=== PATIENT | male | born 1995 | race Caucasian/White ===

== ENCOUNTER 2016-11-11 11:13 | Emergency (ER) | payer BC, OTHER ==
--- NOTE | 2016-11-11 11:32 | ED ---
General Adult HPI - General Chief complaint: ENT Stated complaint: Throat Pain, Headache Time Seen by Provider: 11/11/16 11:17 Source: patient, RN notes reviewed Mode of arrival: ambulatory Limitations: no limitations - History of Present Illness Initial comments: Patient 21-year-old male who presents emergency room today with chief complaint of a sore throat over the last week. Patient does admit that he did have mono the past THAT this could be related. He denies any abdominal pain. Denies any nausea, vomiting, diarrhea. Patient denies any recorded temperatures. Denies any cough or congestion. Denies any ear pain. Doesn't to some sinus pressures have some headaches. Patient denies any other complaints. - Related Data Home Medications Medication Instructions Recorded Confirmed Aspirin 325 mg PO DAILY PRN 11/11/16 11/11/16 Previous Rx's Medication Instructions Recorded Fluticasone Propionate [Flonase 1 - 2 spray EA NOSTRIL DAILY 5 Days 11/11/16 Allergy Relief] Allergies Allergy/AdvReac Type Severity Reaction Status Date / Time No Known Allergies Allergy Verified 11/11/16 11:29 Review of Systems ROS Statement: Those systems with pertinent positive or pertinent negative responses have been documented in the HPI. ROS Other: All systems not noted in ROS Statement are negative. Past Medical History Past Medical History: No Reported History History of Any Multi-Drug Resistant Organisms: None Reported Past Surgical History: No Surgical Hx Reported Past Psychological History: No Psychological Hx Reported Smoking Status: Current every day smoker Past Alcohol Use History: None Reported Past Drug Use History: None Reported General Exam - General Exam Comments Initial Comments: General: The patient is awake and alert, in no distress, and does not appear acutely ill. Eye: Pupils are equal, round and reactive to light, extra-ocular movements are intact. No nystagmus. There is normal conjunctiva bilaterally. No signs of icterus. Ears, nose, mouth and throat: There are moist mucous membranes and no oral lesions. Tender to palpation over both frontal Sinuses. TMs clear bilaterally. Neck: The neck is supple, there is no tenderness or JVD. Cardiovascular: There is a regular rate and rhythm. No murmur, rub or gallop is appreciated. Respiratory: Lungs are clear to auscultation, respirations are non-labored, breath sounds are equal. No wheezes, stridor, rales, or rhonchi. Gastrointestinal: Soft, non-distended, non-tender abdomen without masses or organomegaly noted. There is no rebound or guarding present. No CVA tenderness. Bowel sounds are unremarkable. Musculoskeletal: Normal ROM, no tenderness. Strength 5/5. Sensation intact. Pulses equal bilaterally 2+. Neurological: A&O x 3. CN II-XII intact, There are no obvious motor or sensory deficits. Coordination appears grossly intact. Speech is normal. Skin: Skin is warm and dry and no rashes or lesions are noted. Psychiatric: Cooperative, appropriate mood & affect, normal judgment. Limitations: no limitations Course Vital Signs 11/11/16 11:15 Temperature 99.4 F Pulse Rate 91 Respiratory 18 Rate Blood Pressure 124/68 O2 Sat by Pulse 100 Oximetry Medical Decision Making - Medical Decision Making Patient reexamined at this time shows no signs of distress. Patient will be discharged home. Pulses equal bilateral. Will be treated for sinus infection with Flonase. Advised return for any other concerns. The family doctor. - Lab Data Lab Results 11/11/16 Range/Units 11:32 Group A Strep Rapid Negative (Negative) Disposition Clinical Impression: Acute sinusitis Disposition: HOME SELF-CARE Condition: Good Instructions: Sinusitis (ED) Additional Instructions: Please use medication as discussed. Please follow-up with family doctor in the next 2 days of symptoms have not improved. Please return to emergency room if the symptoms increase or worsen or for any other concerns. Prescriptions: Fluticasone Propionate [Flonase Allergy Relief] 1 - 2 spray EA NOSTRIL DAILY 5 Days Referrals: None,Stated [Primary Care Provider] - 1-2 days Time of Disposition: 12:31
[2016-11-11 12:45] VITALS: BP 114/60; PULSE 82; RESP 16; TEMP 98.9
== END 2016-11-11 12:35 | disposition home or self-care (01) ==
LOC: EC 11:13
DX: J01.90 Acute sinusitis, unspecified (principal); F17.200 Nicotine dependence, unspecified, uncomplicated
CPT/HCPCS: 87081; 87430; 99284

== ENCOUNTER 2018-10-25 23:51 | Emergency (ER) | payer BC, OTHER ==
[2018-10-25 23:55] VITALS: RESP 18
[2018-10-26] MEDS ORDERED: LIDOCAINE 1%/EPI 1:200,000 MPF 10 ML VIAL SQ STA (01:45)
--- NOTE | 2018-10-26 02:45 | ED ---
General Adult HPI - General Chief complaint: GI Bleed Stated complaint: male Time Seen by Provider: 10/26/18 01:40 Source: patient Mode of arrival: ambulatory Limitations: no limitations - History of Present Illness Initial comments: [place] 23-year-old gentleman with a history of recurrent external hemorrhoids presents the ER today for evaluation of a painful when he believes to be thrombosed external hemorrhoid. Patient reports this is bothering him for a number of days he's been doing sitz baths tonight was unable to sleep doesn't feel that he'll be able to go to work in the morning and felt like he should have the hemorrhoid evaluated. Patient reports she's had come to the ER and have the hemorrhoids cut open in the past. He has never followed with a surgeon for this. - Related Data Home Medications Medication Instructions Recorded Confirmed Aspirin 325 mg PO DAILY PRN 11/11/16 11/11/16 Previous Rx's Medication Instructions Recorded Fluticasone Propionate [Flonase 1 - 2 spray EA NOSTRIL DAILY 5 11/11/16 Allergy Relief] Days ml Allergies Allergy/AdvReac Type Severity Reaction Status Date / Time No Known Allergies Allergy Verified 10/25/18 23:55 Review of Systems ROS Statement: Those systems with pertinent positive or pertinent negative responses have been documented in the HPI. ROS Other: All systems not noted in ROS Statement are negative. Past Medical History Past Medical History: No Reported History History of Any Multi-Drug Resistant Organisms: None Reported Past Surgical History: No Surgical Hx Reported Past Psychological History: No Psychological Hx Reported Smoking Status: Current every day smoker Past Alcohol Use History: None Reported Past Drug Use History: None Reported General Exam - General Exam Comments Initial Comments: Physical Exam GENERAL: Patient is well-developed and well-nourished. Patient is nontoxic and well- hydrated and is in no distress. HENT: Normocephalic, Atraumatic. EYES: PERRL, EOMI PULMONARY: Unlabored respirations. No audible rales rhonchi or wheezing was noted. CARDIOVASCULAR: There is a regular rate and rhythm without any murmurs gallops or rubs. ABDOMEN: Soft and nontender with normal bowel sounds. SKIN: Skin is clear with no lesions or rashes and otherwise unremarkable. : Normal External genitalia Rectal exam with a large thrombosed hemorrhoid NEUROLOGIC: Patient is alert and oriented x3. Moving all extremities spontaneously MUSCULOSKELETAL: Normal extremities with adequate strength and full range of motion. No lower extremity swelling or edema. No calf tenderness. PSYCHIATRIC: Normal psychiatric evaluation. Limitations: no limitations Course Vital Signs 10/25/18 10/26/18 23:52 02:54 Temperature 98.2 F 97.8 F Pulse Rate 76 77 Respiratory 18 18 Rate Blood Pressure 122/80 129/79 O2 Sat by Pulse 99 97 Oximetry Procedures - Incision & Drainage Consent Obtained: verbal consent Site: buttock (Hemorrhoid) Anesthetic Used: lidocaine 1%, with epi I&D Cleaning Method: Betadine Sterile Field Used?: No Scalpel Used: #11 Needle Aspiration Performed?: No Irrigation Performed?: No I&D Drainage Obtained: Blood Culture Obtained?: No Patient Tolerated Procedure: well, no complications Medical Decision Making - Medical Decision Making The patient was seen and evaluated history is obtained from the patient Physical exam consistent with a large thrombosed external hemorrhoid Hemorrhoid was cleansed with Betadine, anesthetized with 1 mL of 1% lidocaine with epinephrine, 11 blade was made to make a 1 cm incision and large clot was able to be expressed. Patient tolerated procedure well. Patient will be discharged home. Disposition Clinical Impression: Thrombosed external hemorrhoid Disposition: HOME SELF-CARE Condition: Stable Instructions (If sedation given, give patient instructions): Thrombosed Hemorrhoid (ED) Is patient prescribed a controlled substance at d/c from ED?: No Referrals: None,Stated [Primary Care Provider] - 1-2 days
[2018-10-26 02:56] VITALS: BP 129/79; PULSE 77; TEMP 97.8
== END 2018-10-26 02:55 | disposition home or self-care (01) ==
LOC: EC 23:51
DX: K64.5 Perianal venous thrombosis (principal); F17.200 Nicotine dependence, unspecified, uncomplicated
CPT/HCPCS: 46083; 99282

== ENCOUNTER 2018-12-14 12:03 | Emergency (ER) | payer BC, OTHER ==
[2018-12-14 12:12] VITALS: BP 126/71; PULSE 90; RESP 18; TEMP 97.9
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
== END 2018-12-14 14:15 | disposition home or self-care (01) ==
LOC: EC 12:03
DX: T23.262A Burn of second degree of back of left hand, initial encounter (principal); T23.222A Burn of second degree of single left finger (nail) except thumb, initial encounter; F17.200 Nicotine dependence, unspecified, uncomplicated; X08.8XXA Exposure to other specified smoke, fire and flames, initial encounter; Y93.89 Activity, other specified; Y92.69 Other specified industrial and construction area as the place of occurrence of the external cause; Y99.0 Civilian activity done for income or pay
CPT/HCPCS: 87070; 87077; 87186; 87205; 99284

== ENCOUNTER 2020-05-23 09:19 | Emergency (ER) | payer OTHER ==
[2020-05-23 09:26] VITALS: BP 125/64; PULSE 92; RESP 18; TEMP 97.5
--- NOTE | 2020-05-23 10:34 | ED ---
ENT HPI - General Chief complaint: ENT Stated complaint: L ear pain Time Seen by Provider: 05/23/20 09:31 Source: patient Mode of arrival: ambulatory Limitations: no limitations - History of Present Illness Initial comments: 24-year-old male presenting for left ear pain 2 days. Patient states the past 2 days he has had left ear pain he states it hurts when he opens and closes his jaw. Patient states he does struggle with serum impactions. Patient denies any drainage from the ear. Denies any fevers chills generally sore throat cough or any other upper respiratory symptoms. Upon arrival patient appears well nontoxic is in no distress. - Related Data Home Medications Medication Instructions Recorded Confirmed Aspirin 325 mg PO DAILY PRN 11/11/16 11/11/16 Previous Rx's Medication Instructions Recorded Fluticasone Propionate [Flonase 1 - 2 spray EA NOSTRIL DAILY 5 11/11/16 Allergy Relief] Days ml Cephalexin [Keflex] 500 mg PO Q6HR #28 cap 12/14/18 Amoxicillin 500 mg PO Q8H 7 Days #21 capsule 05/23/20 Allergies Allergy/AdvReac Type Severity Reaction Status Date / Time No Known Allergies Allergy Verified 05/23/20 09:26 Review of Systems ROS Statement: Those systems with pertinent positive or pertinent negative responses have been documented in the HPI. ROS Other: All systems not noted in ROS Statement are negative. Past Medical History Past Medical History: No Reported History History of Any Multi-Drug Resistant Organisms: None Reported Past Surgical History: No Surgical Hx Reported Past Psychological History: No Psychological Hx Reported Smoking Status: Never smoker Past Alcohol Use History: None Reported Past Drug Use History: None Reported General Exam - General Exam Comments Initial Comments: General: The patient is awake and alert, in no distress Eye: +3 mm pupils are equal, round and reactive to light, extra-ocular movements are intact. No nystagmus. There is normal conjunctiva bilaterally. No signs of icterus. Ears, nose, mouth and throat: There are moist mucous membranes and no oral lesions. TM nonvisualized, cerumen impaction b/l. once removed there was some erythema of the left TM. Neck: The neck is supple, there is no tenderness or JVD. Cardiovascular: There is a regular rate and rhythm. No murmur, rub or gallop is appreciated. Respiratory: Lungs are clear to auscultation, respirations are non-labored, breath sounds are equal. No wheezes, stridor, rales, or rhonchi. Gastrointestinal: Soft, non-distended, non-tender abdomen without masses or organomegaly noted. There is no rebound or guarding present. Musculoskeletal: Normal ROM, no tenderness. Strength 5/5. Sensation intact. Radial and DP pulses equal bilaterally 2+. Neurological: A&O x 3. CN II-XII intact, There are no obvious motor or sensory deficits. Coordination appears grossly intact. Speech is normal. Skin: Skin is warm and dry and no rashes or lesions are noted. Psychiatric: Cooperative, appropriate mood & affect, normal judgment. Limitations: no limitations Course Vital Signs 05/23/20 09:22 Temperature 97.5 F L Pulse Rate 92 Respiratory 18 Rate Blood Pressure 125/64 O2 Sat by Pulse 100 Oximetry Medical Decision Making - Medical Decision Making concern otitis media. cerumen removed easily wth hydrogen peroxide. patient will be treated with oral abx and discharged with pcp f/u no EAC redness, no clinical findings suggestive of mastoiditis Disposition Clinical Impression: Left ear impacted cerumen, Otitis media Disposition: HOME SELF-CARE Condition: Good Instructions (If sedation given, give patient instructions): Ear Infection (ED) Additional Instructions: Please use medication as discussed. Please follow-up with family doctor in the next 2 days. Please return to emergency room if the symptoms increase or worsen or for any other concerns. Prescriptions: Amoxicillin 500 mg PO Q8H 7 Days #21 capsule Is patient prescribed a controlled substance at d/c from ED?: No Referrals: None,Stated [Primary Care Provider] - 1-2 days Time of Disposition: 10:34
== END 2020-05-23 11:08 | disposition home or self-care (01) ==
LOC: EC 09:19
DX: H66.92 Otitis media, unspecified, left ear (principal); H61.22 Impacted cerumen, left ear
CPT/HCPCS: 99282

== ENCOUNTER 2024-04-26 09:18 | Emergency (ER) | payer OTHER ==
[2024-04-26 09:48] VITALS: RESP 18
--- NOTE | 2024-04-26 10:23 | ED ---
General Adult HPI - General Chief complaint: Upper Respiratory Infection Stated complaint: Fever,Weakness Time Seen by Provider: 04/26/24 09:21 Source: patient, RN notes reviewed, old records reviewed Mode of arrival: ambulatory - History of Present Illness Initial comments: 28 yo male presenting with flulike illness over the past 2 days. Patient has had dry cough, sore throat, nasal congestion, fever and myalgia. Patient is otherwise healthy with no chronic medical conditions. Several family members have similar illness. - Related Data Home Medications Medication Instructions Recorded Confirmed Aspirin 325 mg PO DAILY PRN 11/11/16 11/11/16 Previous Rx's Medication Instructions Recorded Fluticasone Propionate [Flonase 1 - 2 spray EA NOSTRIL DAILY 5 11/11/16 Allergy Relief] Days ml Cephalexin [Keflex] 500 mg PO Q6HR #28 cap 12/14/18 Amoxicillin 500 mg PO Q8H 7 Days #21 capsule 05/23/20 Oseltamivir [Tamiflu] 75 mg PO Q12HR #10 cap 04/26/24 Allergies Allergy/AdvReac Type Severity Reaction Status Date / Time No Known Allergies Allergy Verified 04/26/24 09:22 Review of Systems ROS Statement: Those systems with pertinent positive or pertinent negative responses have been documented in the HPI. ROS Other: All systems not noted in ROS Statement are negative. Past Medical History Past Medical History: No Reported History History of Any Multi-Drug Resistant Organisms: None Reported Past Surgical History: No Surgical Hx Reported Past Psychological History: No Psychological Hx Reported Smoking Status: Never smoker Past Alcohol Use History: None Reported Past Drug Use History: None Reported General Exam General appearance: alert, in no apparent distress Head exam: Present: atraumatic, normocephalic Eye exam: Present: normal appearance, PERRL ENT exam: Present: normal exam Neck exam: Present: normal inspection. Absent: tenderness, meningismus Respiratory exam: Present: normal lung sounds bilaterally. Absent: respiratory distress, wheezes Cardiovascular Exam: Present: regular rate, normal rhythm GI/Abdominal exam: Present: soft. Absent: distended Extremities exam: Present: normal inspection, normal capillary refill Neurological exam: Present: alert, oriented X3, CN II-XII intact. Absent: motor sensory deficit Psychiatric exam: Present: normal affect, normal mood Skin exam: Present: warm, dry, intact. Absent: cyanosis, diaphoretic Course Vital Signs 04/26/24 04/26/24 09:20 09:43 Temperature 98.5 F Pulse Rate 110 H Respiratory 20 18 Rate Blood Pressure 131/86 O2 Sat by Pulse 97 Oximetry Medical Decision Making - Medical Decision Making Was pt. sent in by a medical professional or institution (RONNY Bedoya, AUTOMOTIVE SERVICES MANAGER, urgent care, hospital, or retirement...) When possible be specific @ -No Did you speak to anyone other than the patient for history (EMS, parent, family, police, friend...)? What history was obtained from this source @ -No Did you review nursing and triage notes (agree or disagree)? Why? @ -I reviewed and agree with nursing and triage notes Were old charts reviewed (outside hosp., previous admission, EMS record, old EKG, old radiological studies, urgent care reports/EKG's, retirement records)? Report findings @ -No old charts were reviewed Differential Diagnosis: viral upper respiratory infection, influenza, pneumonia EKG interpreted by me (3pts min.). @ -As above X-rays interpreted by me (1pt min.). @ -None done CT interpreted by me (1pt min.). @ -None done U/S interpreted by me (1pt. min.). @ -None done What testing was considered but not performed or refused? (CT, X-rays, U/S, labs)? Why? @ -None What meds were considered but not given or refused? Why? @ -None Did you discuss the management of the patient with other professionals (professionals i.e. RONNY Bedoya, AUTOMOTIVE SERVICES MANAGER, lab, RT, psych nurse, rn social services, dwarf tree grower, teacher, sewage reticulation drafting officer, piano case and bench assembler)? Give summary @ -No Was smoking cessation discussed for >3mins.? @ -No Was critical care preformed (if so, how long)? @ -No Were there social determinants of health that impacted care today? How? (Homelessness, low income, unemployed, alcoholism, drug addiction, transportation, low edu. Level, literacy, decrease access to med. care, usp, rehab)? @ -No Was there de-escalation of care discussed even if they declined (Discuss DNR or withdrawal of care, Hospice)? DNR status @ -No What co-morbidities impacted this encounter? (DM, HTN, Smoking, COPD, CAD, Cancer, CVA, ARF, Chemo, Hep., AIDS, mental health diagnosis, sleep apnea, morbid obesity)? @ -None Was patient admitted / discharged? Hospital course, mention meds given and route, prescriptions, significant lab abnormalities, going to OR and other pertinent info. @28-year-old male with flulike illness, testing positive for influenza. Patient well-appearing with stable vitals. He appears hydrated. No respiratory distress. Patient will be started on Tamiflu and instructed on fever control with Tylenol Motrin and encouraged to maintain oral hydration. Undiagnosed new problem with uncertain prognosis? @ -No Drug Therapy requiring intensive monitoring for toxicity (Heparin, Nitro, Insulin, Cardizem)? @ -No Were any procedures done? @ -No Diagnosis/symptom? @ -Influenza Acute, or Chronic, or Acute on Chronic? @ -[Acute Uncomplicated (without systemic symptoms) or Complicated (systemic symptoms)? @ -Default Side effects of treatment? @ -No Exacerbation, Progression, or Severe Exacerbation? @ -No Poses a threat to life or bodily function? How? (Chest pain, [place], [place], pneumonia, PE, COPD, DKA, ARF, appy, cholecystitis, CVA, Diverticulitis, Homicidal, Suicidal, threat to staff... and all critical care pts) @ -No - Lab Data Lab Results 04/26/24 Range/Units 09:43 Influenza Type A (PCR) Detected A (Not Detectd) Influenza Type B (PCR) Not Detected (Not Detectd) RSV (PCR) Not Detected (Not Detectd) SARS-CoV-2 (PCR) Not Detected (Not Detectd) Disposition Clinical Impression: Influenza Disposition: HOME SELF-CARE Condition: Fair Instructions (If sedation given, give patient instructions): Influenza (ED) Prescriptions: Oseltamivir [Tamiflu] 75 mg PO Q12HR #10 cap Is patient prescribed a controlled substance at d/c from ED?: No Referrals: None,Stated [Primary Care Provider] - 1-2 days Time of Disposition: 10:30
[2024-04-26 10:28] LABS: Influenza A Detected (Not Detectd); Influenza B Not Detected (Not Detectd); RSV Not Detected (Not Detectd)
[2024-04-26 10:42] VITALS: BP 129/76; PULSE 101; TEMP 98.4
== END 2024-04-26 10:42 | disposition home or self-care (01) ==
LOC: EC 09:18
DX: J11.1 Influenza due to unidentified influenza virus with other respiratory manifestations (principal); Z11.52 Encounter for screening for COVID-19
CPT/HCPCS: 87636; 99284